=== PATIENT | female | born 1995 | race Caucasian/White ===

== ENCOUNTER 2018-08-20 16:48 | Emergency (ER) | payer BC ==
[~2018-08-20] VITALS: Ht 149.9 cm; Wt 51.4 kg
[2018-08-20] MEDS ORDERED: NS 1,000 ML IV ONE (17:30)
[2018-08-20] MEDS ORDERED: KETOROLAC 30 MG/ML VIAL (J1885) IV ONE (17:30)
--- NOTE | 2018-08-20 18:05 | REP ---
Clinical: Left flank pain. Technique: Axial noncontrast images from the lung bases to the pubic symphysis with coronal and sagittal re-formations. Findings: Lung bases are clear. Visualized heart and pericardium normal. Liver, spleen, pancreas, gallbladder, bilateral adrenal glands and kidneys are relatively normal. No perinephric stranding, hydroureteronephrosis or obstructing ureteral calculi are identified. A 1 mm nonobstructing right renal calculus (image 43) suggested. The enteric system is without obstruction or acute inflammatory process, and a normal terminal ileum/appendix identified in the right lower quadrant. Pelvis demonstrates normal bladder and age-appropriate uterus/adnexa. Very subtle mucosal thickening to the sigmoid colon within the left cecilio pelvis versus under distension may represent a mild sigmoid colitis and should be correlated clinically. No ascites. No free air. No adenopathy. Musculoskeletal structures intact. Impression: 1. 1 mm nonobstructing right renal calculus. The urinary tract is otherwise unremarkable by noncontrast evaluation and correlation with urinalysis may be warranted. 2. Mild sigmoid thickening cannot be excluded and should be correlated with physical examination to exclude a very subtle sigmoid colitis. Electronically Signed by Nba Kim MD 08/20/2018 05:56 P
[2018-08-20 18:14] LABS: BASO # 0.1 10^3/uL (0.0-0.2); BASO % 0.6 % (0.0-1.0); EOS # 0.1 10^3/uL (0.0-0.50); EOS % 1.2 % (0.0-3.0); HEMATOCRIT 43.2 % (36.0-47.0); HEMOGLOBIN 14.2 g/dl (12.0-15.5); LYMPH # 1.9 10^3/uL (1.5-6.5); LYMPH % 15.4 % (24.0-44.0); MEAN CORPUSCULAR HEMOGLOBIN 29.3 pg (27.0-33.0); MEAN CORPUSCULAR HGB CONC 32.9 g/dl (32.0-36.5); MEAN CORPUSCULAR VOLUME 89.1 fl (80.0-96.0); MONO # 0.7 10^3/uL (0.0-0.8); MONO % 5.9 % (0.0-5.0); NEUTROPHILS # 9.3 10^3/uL (1.8-7.7); NEUTROPHILS % 76.7 % (36.0-66.0); PLATELET COUNT, AUTOMATED 384 10^3/uL (150-450); RED BLOOD COUNT 4.85 10^6/uL (4.00-5.40); WHITE BLOOD COUNT 12.2 10^3/uL (4.0-10.0)
[2018-08-20] MEDS ORDERED: CIPROFLOXACIN 500 MG TAB PO ONE (18:15)
[2018-08-20] MEDS ORDERED: cefTRIAXone SOD 1 GM in D5W MINI-BAG PLUS 50 ML IV ONE (18:15)
[2018-08-20 18:31] LABS: ALT/SGPT 25 U/L (12-78); BILIRUBIN,DIRECT 0.1 MG/DL (0.0-0.2); BILIRUBIN,TOTAL 0.4 MG/DL (0.2-1.0); BLOOD UREA NITROGEN 5 MG/DL (7-18); C REACTIVE PROTEIN QUANTITATIV < 0.30 MG/DL (0.00-0.30); CALCIUM LEVEL 8.9 MG/DL (8.5-10.1); CARBON DIOXIDE LEVEL 29 MEQ/L (21-32); CHLORIDE LEVEL 106 MEQ/L (98-107); CREATININE FOR GFR 0.64 MG/DL (0.55-1.30); GLOMERULAR FILTRATION RATE > 60.0 (>60); GLUCOSE, FASTING 78 MG/DL (70-100); POTASSIUM SERUM 3.7 MEQ/L (3.5-5.1); SODIUM LEVEL 139 MEQ/L (136-145); TOTAL PROTEIN 7.3 GM/DL (6.4-8.2)
[2018-08-20] MEDS ORDERED: PYRI1TAB5 PO (18:39)
[2018-08-20] MEDS ORDERED: CIPR-249 PO (18:39)
[2018-08-20 18:55] VITALS: BP 109/61
== END 2018-08-20 19:12 | disposition home or self-care (01) ==
LOC: M ED 16:48
DX: N10 Acute pyelonephritis (principal); N30.01 Acute cystitis with hematuria
CPT/HCPCS: 74176; 80053; 81001; 81025; 82248; 85025; 86140; 87040; 87086; 96374; 96375; 99284; J0696; J1885

== ENCOUNTER → 2018-09-07 | Outpatient (REF) | payer BC ==
[~2018-09-07] MED LIST: CIPR-249 PO; PYRI1TAB5 PO
[2018-09-07 14:00] LABS: APPEARANCE, URINE CLEAR (CLEAR); BACTERIA, URINE AUTO 1+ (NEGATIVE); BILIRUBIN, URINE AUTO NEGATIVE (NEGATIVE); BLOOD, URINE BLOOD NEGATIVE (NEGATIVE); COLOR, URINE STRAW (YELLOW); GLUCOSE, URINE (UA) AUTO NEGATIVE (NEGATIVE); KETONE, URINE AUTO NEGATIVE (NEGATIVE); LEUKOCYTE ESTERASE, URINE AUTO NEGATIVE (NEGATIVE); NITRITE, URINE AUTO NEGATIVE (NEGATIVE); PROTEIN, URINE AUTO NEGATIVE (NEGATIVE); RBC, URINE AUTO 0 /HPF (0-3); SPECIFIC GRAVITY URINE AUTO 1.005 (1.002-1.035); SQUAMOUS EPITHELIAL CELL UR AU 1 /HPF (0-6); UROBILINOGEN, URINE AUTO 0.2 mg/dL (0.0-2.0); WBC, URINE AUTO 0 /HPF (0-3)
== END ==
LOC: M SMT 13:20
PROVIDERS: ATTEND Nurse Practitioner Family
DX: R31.9 Hematuria, unspecified (principal)

== ENCOUNTER → 2018-09-23 | Outpatient (REF) | payer BC | LOC: M LABSMT 10:51 | PROVIDERS: ATTEND Urology Pediatric Urology | DX: N30.30 Trigonitis without hematuria (principal); R31.0 Gross hematuria; R30.0 Dysuria; R33.9 Retention of urine, unspecified; N20.0 Calculus of kidney ==

== ENCOUNTER → 2018-09-23 | Outpatient (CLI) | payer BC ==
--- NOTE | 2018-09-23 12:29 | REP ---
Clinical: Trigonitis Technique: Single supine view of the abdomen and pelvis. Findings: Bowel gas pattern is nonspecific. No organomegaly. No abnormal calcifications. Skeletal structures are intact. Small phleboliths noted in the pelvis. Impression: Nonspecific abdominal radiograph. Electronically Signed by Nba Kim MD 09/23/2018 12:21 P
[2018-09-23 12:57] LABS: IONIZED CALCIUM 4.8 MG/DL (4.5-5.3)
[2018-09-23 13:07] LABS: BASO # 0.1 10^3/uL (0.0-0.2); BASO % 0.9 % (0.0-1.0); EOS # 0.1 10^3/uL (0.0-0.50); EOS % 1.3 % (0.0-3.0); HEMATOCRIT 41.8 % (36.0-47.0); HEMOGLOBIN 13.5 g/dl (12.0-15.5); LYMPH # 1.7 10^3/uL (1.5-6.5); LYMPH % 25.5 % (24.0-44.0); MEAN CORPUSCULAR HEMOGLOBIN 29.5 pg (27.0-33.0); MEAN CORPUSCULAR HGB CONC 32.3 g/dl (32.0-36.5); MEAN CORPUSCULAR VOLUME 91.5 fl (80.0-96.0); MONO # 0.5 10^3/uL (0.0-0.8); MONO % 6.8 % (0.0-5.0); NEUTROPHILS # 4.4 10^3/uL (1.8-7.7); NEUTROPHILS % 65.1 % (36.0-66.0); PLATELET COUNT, AUTOMATED 356 10^3/uL (150-450); RED BLOOD COUNT 4.57 10^6/uL (4.00-5.40); WHITE BLOOD COUNT 6.8 10^3/uL (4.0-10.0)
[2018-09-23 13:30] LABS: ALBUMIN 3.9 GM/DL (3.2-5.2); ALT/SGPT 33 U/L (12-78); BILIRUBIN,TOTAL 0.4 MG/DL (0.2-1.0); BLOOD UREA NITROGEN 8 MG/DL (7-18); CALCIUM LEVEL 8.7 MG/DL (8.5-10.1); CARBON DIOXIDE LEVEL 30 MEQ/L (21-32); CHLORIDE LEVEL 103 MEQ/L (98-107); CREATININE FOR GFR 0.53 MG/DL (0.55-1.30); GLOMERULAR FILTRATION RATE > 60.0 (>60); GLUCOSE, FASTING 74 MG/DL (70-100); MAGNESIUM LEVEL 1.9 MG/DL (1.8-2.4); POTASSIUM SERUM 4.2 MEQ/L (3.5-5.1); SODIUM LEVEL 139 MEQ/L (136-145); TOTAL PROTEIN 7.1 GM/DL (6.4-8.2); URIC ACID 3.2 MG/DL (2.6-6.0)
[2018-09-23 13:38] LABS: PTH INTACT 59.3 PG/ML (18.5-88.0)
== END ==
LOC: M SMT 11:17
PROVIDERS: ATTEND Urology Pediatric Urology
DX: N30.30 Trigonitis without hematuria (principal); R31.0 Gross hematuria; R33.9 Retention of urine, unspecified; N20.0 Calculus of kidney

== ENCOUNTER → 2022-02-06 | Outpatient (CLI) | payer BC, OTHER ==
[~2022-02-06] MED LIST changes: +E-Z-GAS II EFFERVESCENT PACKET (SODIUM BICARB./CITRIC ACID/SIMETHICONE) As Ordered ONE; +E-Z-HD 98% w/w 340GM SUSP BTL As Ordered ONE; +E-Z-PAQUE 96% w/w SUSP 176GM BTL As Ordered ONE
== END ==
LOC: M RAD 08:45
PROVIDERS: ATTEND Family Medicine
DX: R10.13 Epigastric pain (principal)

== ENCOUNTER → 2023-09-24 | Outpatient (CLI) | payer BC, OTHER ==
[~2023-09-24] MED LIST changes: -E-Z-GAS II EFFERVESCENT PACKET (SODIUM BICARB./CITRIC ACID/SIMETHICONE) As Ordered ONE; -E-Z-HD 98% w/w 340GM SUSP BTL As Ordered ONE; -E-Z-PAQUE 96% w/w SUSP 176GM BTL As Ordered ONE
[2023-09-24 18:23] LABS: HEMATOCRIT 35.9 % (36.0-47.0); HEMOGLOBIN 12.2 g/dl (12.0-15.5); MEAN CORPUSCULAR HEMOGLOBIN 31.4 pg (27.0-33.0); MEAN CORPUSCULAR VOLUME 92.5 fl (80.0-96.0); PLATELET COUNT, AUTOMATED 397 10^3/uL (150-450); RED BLOOD COUNT 3.88 10^6/uL (4.00-5.40); WHITE BLOOD COUNT 9.8 10^3/uL (4.0-10.0)
[2023-09-24 19:21] LABS: HIV 1&2 SCREEN NEGATIVE (NEGATIVE)
[2023-09-24 19:29] LABS: HEPATITIS C VIRUS ABY INDEX 0.02 INDEX (<0.8)
== END ==
LOC: M PLALAB 15:12
PROVIDERS: ATTEND Advanced Practice Midwife
DX: Z34.01 Encounter for supervision of normal first pregnancy, first trimester (principal)

== ENCOUNTER → 2023-09-24 | Outpatient (REF) | payer BC ==
[2023-09-24 18:42] LABS: CHLAMYDIA DNA AMPLIFICATION NEGATIVE (NEGATIVE); GC DNA AMPLIFICATION NEGATIVE (NEGATIVE)
== END ==
LOC: M PLALAB 15:03
PROVIDERS: ATTEND Advanced Practice Midwife
DX: Z34.01 Encounter for supervision of normal first pregnancy, first trimester (principal)

== ENCOUNTER 2023-10-27 08:10 | Emergency (ER) | payer BC, OTHER ==
[~2023-10-27] VITALS: Ht 152.4 cm; Wt 58.3 kg
[2023-10-27] MEDS ORDERED: FLUT15.820 NARES (08:24)
[2023-10-27] MEDS ORDERED: PREN1MIS PO (08:24)
[2023-10-27] MEDS ORDERED: MONT10TA97 PO (08:24)
[2023-10-27] MEDS ORDERED: LORA-1041 PO (08:24)
[2023-10-27] MEDS ORDERED: ALBU2.5V10 NEB (08:24)
[2023-10-27] MEDS ORDERED: OSTE1TAB2 PO (08:24)
[2023-10-27] MEDS ORDERED: METF-817 PO (08:24)
[2023-10-27 08:56] LABS: APPEARANCE, URINE HAZY (CLEAR); BACTERIA, URINE AUTO 1+ (NEGATIVE); BILIRUBIN, URINE AUTO NEGATIVE (NEGATIVE); BLOOD, URINE BLOOD 2+ (NEGATIVE); COLOR, URINE YELLOW (YELLOW); GLUCOSE, URINE (UA) AUTO NEGATIVE (NEGATIVE); KETONE, URINE AUTO NEGATIVE (NEGATIVE); LEUKOCYTE ESTERASE, URINE AUTO NEGATIVE (NEGATIVE); MUCUS, URINE SMALL (NEGATIVE); NITRITE, URINE AUTO NEGATIVE (NEGATIVE); PROTEIN, URINE AUTO 1+ mg/dL (NEGATIVE); RBC, URINE AUTO 163 /HPF (0-3); SPECIFIC GRAVITY URINE AUTO 1.024 (1.002-1.035); SQUAMOUS EPITHELIAL CELL UR AU 2 /HPF (0-6); UROBILINOGEN, URINE AUTO 0.2 mg/dL (0.0-2.0); WBC, URINE AUTO 1 /HPF (0-3)
[2023-10-27] MEDS: NS 1,000 ML IV ONE (11:43)
[2023-10-27 11:49] LABS: BASO # 0.1 10^3/uL (0.0-0.2); BASO % 0.6 % (0.0-1.0); EOS # 0.3 10^3/uL (0.0-0.5); EOS % 2.1 % (0.0-3.0); HEMATOCRIT 33.4 % (36.0-47.0); HEMOGLOBIN 11.5 g/dl (12.0-15.5); LYMPH # 1.8 10^3/uL (1.5-5.0); LYMPH % 14.7 % (24.0-44.0); MEAN CORPUSCULAR HEMOGLOBIN 31.4 pg (27.0-33.0); MEAN CORPUSCULAR HGB CONC 34.4 g/dl (32.0-36.5); MEAN CORPUSCULAR VOLUME 91.3 fl (80.0-96.0); MONO # 0.6 10^3/uL (0.0-0.8); MONO % 4.6 % (2.0-8.0); NEUTROPHILS # 9.4 10^3/uL (1.5-8.5); NEUTROPHILS % 77.3 % (36.0-66.0); PLATELET COUNT, AUTOMATED 347 10^3/uL (150-450); RED BLOOD COUNT 3.66 10^6/uL (4.00-5.40); WHITE BLOOD COUNT 12.2 10^3/uL (4.0-10.0)
[2023-10-27 12:18] LABS: BLOOD UREA NITROGEN 8 MG/DL (9-23); CALCIUM LEVEL 8.2 MG/DL (8.5-10.1); CARBON DIOXIDE LEVEL 24 MMOL/L (20-31); CHLORIDE LEVEL 105 MMOL/L (98-107); CREATININE FOR GFR 0.41 MG/DL (0.55-1.30); GLOMERULAR FILTRATION RATE > 60.0 (>60); GLUCOSE, FASTING 75 MG/DL (60-100); SODIUM LEVEL 137 MMOL/L (136-145)
[2023-10-27 12:37] VITALS: BP 116/57; TEMP 97.2; O2SAT 100
[2023-10-27] MEDS ORDERED: ONDA4TAB6 PO (12:52)
[2023-10-27] MEDS ORDERED: MACR100C43 PO (12:57)
== END 2023-10-27 13:05 | disposition home or self-care (01) ==
LOC: M ED 08:10
DX: N20.1 Calculus of ureter (principal); N39.0 Urinary tract infection, site not specified; Z87.442 Personal history of urinary calculi; Z88.1 Allergy status to other antibiotic agents; Z79.52 Long term (current) use of systemic steroids; Z79.4 Long term (current) use of insulin; Z79.83 Long term (current) use of bisphosphonates; Z79.899 Other long term (current) drug therapy

== ENCOUNTER → 2023-11-05 | Outpatient (CLI) | payer BC, OTHER ==
[~2023-11-05] MED LIST changes: +ALBU2.5V10 NEB; +FLUT15.820 NARES; +LORA-1041 PO; +MACR100C43 PO; +METF-817 PO; +MONT10TA97 PO; +ONDA4TAB6 PO; +OSTE1TAB2 PO; +PREN1MIS PO
== END ==
LOC: M PLALAB 13:33
PROVIDERS: ATTEND Advanced Practice Midwife
DX: O09.812 Supervision of pregnancy resulting from assisted reproductive technology, second trimester (principal)

== ENCOUNTER → 2023-11-19 | Outpatient (CLI) | payer BC | LOC: M WHC 09:53 | PROVIDERS: ATTEND Advanced Practice Midwife | DX: Z34.02 Encounter for supervision of normal first pregnancy, second trimester (principal) ==

== ENCOUNTER → 2023-12-10 | Outpatient (CLI) | payer BC | LOC: M WHC 10:00 | PROVIDERS: ATTEND Advanced Practice Midwife | DX: Z34.02 Encounter for supervision of normal first pregnancy, second trimester (principal); Z3A.22 22 weeks gestation of pregnancy ==

== ENCOUNTER → 2024-01-14 | Outpatient (CLI) | payer BC ==
[2024-01-14 13:13] LABS: HEMATOCRIT 31.5 % (36.0-47.0); HEMOGLOBIN 10.3 g/dl (12.0-15.5); MEAN CORPUSCULAR HGB CONC 32.7 g/dl (32.0-36.5); MEAN CORPUSCULAR VOLUME 94.9 fl (80.0-96.0); PLATELET COUNT, AUTOMATED 287 10^3/uL (150-450); RED BLOOD COUNT 3.32 10^6/uL (4.00-5.40); WHITE BLOOD COUNT 9.5 10^3/uL (4.0-10.0)
== END ==
LOC: M PLALAB 08:19
PROVIDERS: ATTEND Advanced Practice Midwife
DX: Z34.02 Encounter for supervision of normal first pregnancy, second trimester (principal)

== ENCOUNTER → 2024-03-17 | Outpatient (CLI) | payer BC ==
[~2024-03-17] MED LIST changes: +ONDA-282 PO; -ONDA4TAB6 PO
[2024-03-17 14:21] LABS: HEMATOCRIT 35.6 % (36.0-47.0); HEMOGLOBIN 11.7 g/dl (12.0-15.5); MEAN CORPUSCULAR HEMOGLOBIN 30.8 pg (27.0-33.0); MEAN CORPUSCULAR HGB CONC 32.9 g/dl (32.0-36.5); MEAN CORPUSCULAR VOLUME 93.7 fl (80.0-96.0); PLATELET COUNT, AUTOMATED 282 10^3/uL (150-450)
[2024-03-17 15:25] LABS: HIV 1&2 SCREEN NEGATIVE (NEGATIVE)
[2024-03-17 15:34] LABS: HEPATITIS C VIRUS ABY INDEX < 0.02 INDEX (<0.8)
== END ==
LOC: M PLALAB 11:29
PROVIDERS: ATTEND Advanced Practice Midwife
DX: Z34.83 Encounter for supervision of other normal pregnancy, third trimester (principal)

== ENCOUNTER 2024-04-18 07:10 | Inpatient (IN) | payer BC ==
[2024-04-18] VITALS (27 sets, daily range): BP systolic 93–137; BP diastolic 53–79
[~2024-04-18] VITALS: Ht 152.4 cm; Wt 67.9 kg
[2024-04-18] MEDS ORDERED: TRANEXAMIC ACID INJection 1,000 MG in NS 100 ML IV PRN (08:30)
[2024-04-18] MEDS ORDERED: METHYLERGONOVINE MALEATE 0.2MG/ML 1ML VIAL IM PRN (08:30)
[2024-04-18] MEDS ORDERED: OXYTOCIN DRIP 30 UNITS in IV 1 EA IV PRN (08:30)
[2024-04-18] MEDS ORDERED: CARBOPROST TROMETHAMINE 250 MCG/ML AMP IM PRN (08:30)
[2024-04-18] MEDS: miSOPROStol 50MCG 1/2 TABLET BUC ONE ×2 (08:52→13:41)
[2024-04-18 09:22] LABS: HEMATOCRIT 34.8 % (36.0-47.0); HEMOGLOBIN 12.1 g/dl (12.0-15.5); MEAN CORPUSCULAR HEMOGLOBIN 31.9 pg (27.0-33.0); MEAN CORPUSCULAR HGB CONC 34.8 g/dl (32.0-36.5); MEAN CORPUSCULAR VOLUME 91.8 fl (80.0-96.0); PLATELET COUNT, AUTOMATED 253 10^3/uL (150-450); RED BLOOD COUNT 3.79 10^6/uL (4.00-5.40); WHITE BLOOD COUNT 10.1 10^3/uL (4.0-10.0)
[2024-04-18 10:26] LABS: HEPATITIS C VIRUS ABY INDEX 0.02 INDEX (<0.8)
[2024-04-18] MEDS ORDERED: NALOXONE INJ 0.4MG/1ML VIAL IV PRN (20:55)
[2024-04-18] MEDS ORDERED: ePHEDrine SULFATE 25 MG/5 ML(5MG/ML) SYRINGE IVP PRN (20:55)
[2024-04-18] MEDS ORDERED: EPIDURAL/PCA KEYS XX PRN (20:55)
[2024-04-18] MEDS ORDERED: LR 500 ML IV PRN (20:55)
[2024-04-18] MEDS ORDERED: diphenhydrAMINE 50MG/ML VIAL IV PRN (20:55)
[2024-04-18] MEDS: LACTATED RINGER'S 1000 ML IV PRN (21:01)
[2024-04-18] MEDS: FENTANYL/ROPIVACAINE/NACL BAG 100 ML EPIDURAL SCH (21:06)
[2024-04-18] MEDS ORDERED: OXYTOCIN 30UNITS IN 0.9% NaCl 500ML IV BAG As Ordered ONE (23:29)
[2024-04-19] VITALS (21 sets, daily range): BP systolic 107–129; BP diastolic 58–77; O2SAT 86–100
[2024-04-19] MEDS: ONDANSETRON 4MG 2ML VIAL IV PRN (04:15)
[2024-04-19] MEDS: PRENATAL VITAMINS CHEWABLE TABLET PO SCH (09:00)
[2024-04-19] MEDS ORDERED: ACET500P3 PO (10:30)
[2024-04-19] MEDS ORDERED: HOME MED LIST COMPLETE! XX SCH (10:30)
[2024-04-19] MEDS: BICITRA 30ML SOLN UDC PO ONE (12:35)
[2024-04-19] MEDS: AZITHROMYCIN INJ 500 MG, VIAL MATE ADAPTER 1 EACH in NS 250 ML IV ONE (12:35)
[2024-04-19] MEDS: LACTATED RINGER'S 1000 ML IV STA (12:36)
[2024-04-19] MEDS: ceFAZolin SOD 2 GM in IV 1 EA IV ONE (12:36)
[2024-04-19] MEDS ORDERED: fentaNYL 100 MCG/2 ML INJECTION As Ordered ONE (13:30)
[2024-04-19] MEDS ORDERED: MORPHINE PRES-FREE INJ 10 MG/10 ML VIAL As Ordered ONE (13:35)
[2024-04-19] MEDS ORDERED: OXYTOCIN INJ 10UNITS/ML 1ML VIAL As Ordered ONE (13:41)
[2024-04-19] MEDS ORDERED: ACETAMINOPHEN 1000MG 100ML IV BAG As Ordered ONE (13:42)
[2024-04-19] MEDS ORDERED: oxyCODONE 5MG TAB PO PRN ×3 (14:15→14:25)
[2024-04-19] MEDS ORDERED: SIMETHICONE 80MG CHEW TAB PO PRN (14:15)
[2024-04-19] MEDS ORDERED: METOCLOPRAMIDE INJ 10MG/2ML VIAL IV PRN ×2 (14:15→14:25)
[2024-04-19] MEDS ORDERED: RHO(D) IMMUNE GLOBULIN/MALTOSE 500MCG(2500IU)/2.2ML VIAL (WINRHO) IM SCH (14:15)
[2024-04-19] MEDS ORDERED: ONDANSETRON 4MG 2ML VIAL IV PRN ×2 (14:15→14:25)
[2024-04-19] MEDS ORDERED: **NOTE PATIENT COMMENT** MISC XX SCH (14:25)
[2024-04-19] MEDS ORDERED: NALOXONE INJ 0.4MG/1ML VIAL IV PRN ×2 (14:25)
[2024-04-19] MEDS ORDERED: fentaNYL 100 MCG/2 ML INJECTION IV PRN (14:25)
[2024-04-19] MEDS: SLF 3 ML SYR IV SCH (14:25)
[2024-04-19] MEDS ORDERED: COLA100C5 PO (14:27)
[2024-04-19] MEDS ORDERED: IBUP-1022 PO (14:27)
[2024-04-19] MEDS ORDERED: ACET-683 PO (14:27)
[2024-04-19] MEDS ORDERED: OXYC-517 PO (14:27)
[2024-04-19 14:28] LABS: CORD GAS ABE A -4.9; CORD GAS ABE V -4.5; CORD GAS HCO3 A 22.6 MMOL/L; CORD GAS HCO3 V 21.5 MMOL/L; CORD GAS O2 SAT A 17.7 %; CORD GAS O2 SAT V 36.4 %; CORD GAS PCO2 V 42.7 mmHg; CORD GAS PH A 7.264 UNITS; CORD GAS PH V 7.319 UNITS; CORD GAS PO2 A 12.7 mmHg; CORD GAS PO2 V 16.5 mmHg; CORD GAS SBC A 18.5 MMOL/L; CORD GAS SBC V 19.3 MMOL/L; CORD GAS TCO2 A 24.1 MMOL/L; CORD GAS TCO2 V 22.8 MMOL/L
[2024-04-19] MEDS: OXYTOCIN DRIP 30 UNITS in IV 1 EA IV SCH (14:40)
[2024-04-19] MEDS: LR 1,000 ML IV SCH (14:40)
[2024-04-19] MEDS: ACETAMINOPHEN 500 MG TAB PO SCH (19:01)
[2024-04-19] MEDS: KETOROLAC 30 MG/ML 1ML VIAL IV SCH (20:18)
[2024-04-19] MEDS: diphenhydrAMINE 50MG/ML VIAL IV PRN (20:34)
[2024-04-20 06:00] VITALS: BP 105/59; O2SAT 100
[2024-04-20 06:29] LABS: HEMATOCRIT 30.2 % (36.0-47.0); HEMOGLOBIN 10.2 g/dl (12.0-15.5); MEAN CORPUSCULAR HEMOGLOBIN 31.8 pg (27.0-33.0); MEAN CORPUSCULAR HGB CONC 33.8 g/dl (32.0-36.5); MEAN CORPUSCULAR VOLUME 94.1 fl (80.0-96.0); PLATELET COUNT, AUTOMATED 206 10^3/uL (150-450); RED BLOOD COUNT 3.21 10^6/uL (4.00-5.40); WHITE BLOOD COUNT 19.4 10^3/uL (4.0-10.0)
[2024-04-20] MEDS ORDERED: METF-838 PO (08:34)
[2024-04-20] MEDS ORDERED: FLOM0.4C39 PO (08:34)
[2024-04-20] MEDS ORDERED: MONT-5 PO (08:34)
[2024-04-20] MEDS: OMEPRAZOLE 20MG CAP PO SCH (09:00)
[2024-04-20] MEDS: metFORMIN XR 500MG TAB *GLUCOPHAGE XR PO SCH (09:17)
[2024-04-20 14:00] VITALS: BP 108/57; O2SAT 100
[2024-04-20] MEDS: IBUPROFEN 600MG TAB PO SCH (16:14)
[2024-04-20 18:00] VITALS: BP 113/60; O2SAT 100
[2024-04-20] MEDS: TAMSULOSIN 0.4 MG CAP PO SCH (21:02)
[2024-04-20] MEDS: MONTELUKAST 10 MG TAB PO SCH (21:02)
[2024-04-20] MEDS: DOCUSATE SODIUM 100MG CAPSULE PO PRN (21:03)
[2024-04-20 22:00] VITALS: BP 118/73; O2SAT 100
[2024-04-21 02:00] VITALS: BP 107/52; O2SAT 99
[2024-04-21 05:54] VITALS: BP 115/64; O2SAT 100
[2024-04-21] MEDS: MEASLES,MUMPS,RUBELLA VACCINE INJ (MMR-II) SC.IMMUN ONE (07:14)
[2024-04-21 10:00] VITALS: BP 112/60; O2SAT 100
[2024-04-21 10:13] VITALS: BP 115/64; TEMP 98; O2SAT 100
== END 2024-04-21 13:23 | disposition home or self-care (01) | DRG 540 ==
LOC: M LDI 07:10 → M OBS 04-19 15:31
PROVIDERS: ADMIT Obstetrics & Gynecology; ATTEND Obstetrics & Gynecology
PROC: 3E0P7GC Introduction of Other Therapeutic Substance into Female Reproductive, Via Natural or Artificial Opening (ICD-10-PCS; 2024-04-18)
PROC: 10D00Z1 Extraction of Products of Conception, Low, Open Approach (ICD-10-PCS; principal; 2024-04-19 12:31)
DX: O48.0 Post-term pregnancy (principal); O76 Abnormality in fetal heart rate and rhythm complicating labor and delivery; Z3A.41 41 weeks gestation of pregnancy; O62.0 Primary inadequate contractions; Z37.0 Single live birth